=== PATIENT | female | born 1980 | race American Indian/Alaskan Native ===

== ENCOUNTER → 2025-01-28 | Outpatient (CLI) | payer BC, SELFPAY ==
--- NOTE | 2025-01-28 09:15 | XR_ITS ---
Examination: Thyroid sonography complete Technique: Grayscale sonographic images thyroid lobes Exam date and time: January 28, 2025 0923 hrs. Indications: Diagnosis hypothyroidism 20 years ago Findings: Right thyroid 4.3 cm no solid nodules Left thyroid 2.7 cm no solid nodules Impression: Negative examination
== END | disposition home or self-care (01) ==
LOC: CDIM 08:55
PROVIDERS: Referring Provider Nurse Practitioner Family; Visit Provider Nurse Practitioner Family
DX: E03.9 Hypothyroidism, unspecified (principal)
CPT/HCPCS: 76536